=== PATIENT | female | born 1990 | race Caucasian/White ===

== ENCOUNTER 2021-06-25 07:42 | Emergency (ER) | payer OTHER ==
[2021-06-25 07:55] VITALS: TEMP 98.3; BMI 47.7
[2021-06-25] MEDS ORDERED: ACETAMINOPHEN 1000 MG/100 ML BAG IVPB ONE (09:15)
[2021-06-25] MEDS ORDERED: morphine SULFATE 4 MG/ML VIAL IVPUSH ONE (09:15)
[2021-06-25] MEDS ORDERED: morphine SULFATE 4 MG/ML VIAL ONE (09:50)
[2021-06-25] MEDS ORDERED: ACETAMINOPHEN INJECTION 100 ML IVPB ONE ×2 (09:50→13:23)
[2021-06-25 10:17] LABS: HEMATOCRIT 44.4 % (32.4-45.2); HEMOGLOBIN 15.1 GM/dL (10.7-15.3); MCHC 33.9 g/dl (32.0-36.0); MEAN CELL VOLUME 91.3 fl (80-96); MEAN PLT VOLUME 8.2 fl (7.5-11.1); PLATELET COUNT 373 10^3/uL (134-434); RBC 4.86 M/mm3 (3.60-5.2); RDW 12.4 % (11.6-15.6); WHITE BLOOD COUNT 7.5 K/mm3 (4.0-10.0)
[2021-06-25 10:39] LABS: CALCIUM 8.9 mg/dL (8.5-10.1)
[2021-06-25 10:40] LABS: ALBUMIN 3.8 g/dl (3.4-5.0); BLOOD UREA NITROGEN 11.7 mg/dL (7-18)
[2021-06-25 10:43] LABS: CREATININE 0.6 mg/dL (0.55-1.3)
[2021-06-25 10:44] LABS: BILIRUBIN,TOTAL 0.3 mg/dL (0.2-1); TOT PROT 8.2 g/dl (6.4-8.2)
[2021-06-25 11:44] LABS: ANISOCYTOSIS 0; MACROCYTOSIS 0
[2021-06-25 17:15] LABS: INR 1.04 (0.83-1.09)
[2021-06-25 17:17] LABS: ACTIVATED PTT 29.2 SECONDS (25.2-36.5)
[2021-06-25 18:01] VITALS: BP 140/80; PULSE 80
== END 2021-06-25 18:01 | disposition home or self-care (01) ==
LOC: JER 07:42
PROC: 3E033GC Introduction of Other Therapeutic Substance into Peripheral Vein, Percutaneous Approach (ICD-10-PCS; principal; 2021-06-25)
DX: M25.561 Pain in right knee (principal)
CPT/HCPCS: 36415; 73564-TC-RT-FY; 73610-TC-RT-FY; 73630-TC-RT-FY; 73706-TC-RT; 80053; 84703; 85025; 85610; 85730; 86850; 86900; 86901; 99285-25; Q9967

== ENCOUNTER 2021-09-05 12:23 | Emergency (ER) | payer OTHER ==
[2021-09-05 12:45] VITALS: BP 141/97; TEMP 97.8; BMI 48.0
[2021-09-05] MEDS ORDERED: LIDOCAINE 5% TOPICAL PATCH TP ONE (14:03)
[2021-09-05] MEDS ORDERED: KETOROLAC TROMETHAMINE 30 MG/1 ML VIAL IM ONE (14:03)
[2021-09-05] MEDS ORDERED: CYCLOBENZAPRINE HCL 10 MG TABLET (FP) PO ONE (14:04)
[2021-09-05] MEDS ORDERED: CYCLOBENZAPRINE HCL 10 MG TABLET (FP) ONE (14:07)
[2021-09-05] MEDS ORDERED: LIDOCAINE 5% TOPICAL PATCH ONE (14:07)
[2021-09-05] MEDS ORDERED: KETOROLAC TROMETHAMINE 30 MG/1 ML VIAL ONE (14:08)
[2021-09-05 14:33] VITALS: PULSE 84
[2021-09-05] MEDS ORDERED: LIDOCAINE PATCH REMOVAL MC SCH (22:00)
== END 2021-09-05 15:00 | disposition home or self-care (01) ==
LOC: JERFT 12:23
PROC: 3E0233Z Introduction of Anti-inflammatory into Muscle, Percutaneous Approach (ICD-10-PCS; principal; 2021-09-05)
DX: M25.561 Pain in right knee (principal)
CPT/HCPCS: 73562-TC-RT-FY; 99284-25

== ENCOUNTER 2022-10-11 13:06 | Emergency (ER) | payer OTHER ==
[2022-10-11 13:18] VITALS: RESP 18; BMI 45.2
[2022-10-11] MEDS ORDERED: diazePAM 5 MG TABLET PO ONE (14:23)
[2022-10-11] MEDS ORDERED: LIDOCAINE 5% TOPICAL PATCH TP ONE (14:23)
[2022-10-11] MEDS ORDERED: IBUPROFEN 600 MG TABLET (FP) PO ONE ×2 (14:23→14:58)
[2022-10-11 14:35] LABS: HCG,QUALITATIVE URINE Negative
[2022-10-11 14:36] LABS: URINE APPEARANCE CLEAR; URINE BILIRUBIN NEGATIVE (NEGATIVE); URINE COLOR YELLOW; URINE GLUCOSE (UA) NEGATIVE (NEGATIVE); URINE KETONE TRACE (NEGATIVE); URINE LEUK ESTERASE NEGATIVE (NEGATIVE); URINE NITRITE NEGATIVE (NEGATIVE); URINE PROTEIN NEGATIVE (NEGATIVE)
[2022-10-11] MEDS ORDERED: LIDOCAINE 5% TOPICAL PATCH ONE (14:58)
[2022-10-11] MEDS ORDERED: diazePAM 5 MG TABLET ONE (14:58)
[2022-10-11 18:14] VITALS: BP 157/103; PULSE 87; TEMP 98.7
[2022-10-11] MEDS ORDERED: LIDOCAINE PATCH REMOVAL MC SCH (22:00)
== END 2022-10-11 18:38 | disposition home or self-care (01) ==
LOC: JER 13:06
DX: M54.6 Pain in thoracic spine (principal); M25.511 Pain in right shoulder
CPT/HCPCS: 73030-TC-RT-FY; 74176-TC; 81003; 82962; 84703; 99285-25

== ENCOUNTER 2023-04-15 01:33 | Emergency (ER) | payer OTHER ==
[2023-04-15 01:38] VITALS: TEMP 98; BMI 46.2
[2023-04-15] MEDS ORDERED: ACETAMINOPHEN 325 MG TABLET (FP) PO ONE (03:42)
[2023-04-15] MEDS ORDERED: IBUPROFEN 400 MG TABLET (FP) PO ONE (03:43)
[2023-04-15] MEDS ORDERED: ACETAMINOPHEN 325 MG TABLET (FP) ONE (03:45)
[2023-04-15] MEDS ORDERED: IBUPROFEN 600 MG TABLET (FP) PO ONE (03:46)
[2023-04-15 03:47] LABS: EOS % 5.8 % (0-4.5); HEMOGLOBIN 16.2 GM/dL (10.7-15.3); LYMPH % 38.8 % (8-40); MCH 31.4 pg (25.7-33.7); MCHC 34.6 g/dl (32.0-36.0); MEAN CELL VOLUME 90.9 fl (80-96); MEAN PLT VOLUME 7.9 fl (7.5-11.1); MONO % 6.2 % (3.8-10.2); NEUT % 47.2 % (42.8-82.8); PLATELET COUNT 402 10^3/uL (134-434); RBC 5.17 M/mm3 (3.60-5.2); RDW 12.6 % (11.6-15.6); WHITE BLOOD COUNT 8.2 K/mm3 (4.0-10.0)
[2023-04-15] MEDS ORDERED: DEXAMETHASONE 4 MG TABLET (FP) ONE (03:48)
[2023-04-15] MEDS ORDERED: DEXAMETHASONE 4 MG TABLET (FP) PO ONE (03:49)
[2023-04-15 03:53] LABS: INR 0.88 (0.83-1.09); PROTHROMBIN TIME (PATIENT) 10.2 SEC (9.7-13.0)
[2023-04-15 04:34] LABS: CALCIUM 9.5 mg/dL (8.5-10.1)
[2023-04-15 04:35] LABS: ALBUMIN 4.2 g/dl (3.4-5.0); BLOOD UREA NITROGEN 10.8 mg/dL (7-18)
[2023-04-15 04:38] LABS: CREATININE 0.9 mg/dL (0.55-1.3)
[2023-04-15 04:39] LABS: BILIRUBIN,TOTAL 0.2 mg/dL (0.2-1)
[2023-04-15 08:55] VITALS: BP 150/100; PULSE 81; RESP 20
== END 2023-04-15 09:35 | disposition home or self-care (01) ==
LOC: JER 01:33
DX: R22.31 Localized swelling, mass and lump, right upper limb (principal); R20.2 Paresthesia of skin
CPT/HCPCS: 36415; 80053; 84703; 85025; 85379; 85610; 93971; 99284-25